=== PATIENT | male | born 1955 ===

== ENCOUNTER 2019-12-30 12:36 | Outpatient (REF) | payer OTHER, SELFPAY ==
[2019-12-30 21:09] LABS: Anion Gap 8.9 mmol/L (3-11); BUN 21 mg/dL (7-18); CO2 25.1 mmol/L (21.0-32.0); Calcium 9.6 mg/dL (8.5-10.1); Calculated LDL 166 mg/dL (<100); Chloride 105 mmol/L (98-107); Cholesterol 228 mg/dL (<200); Glucose 110 mg/dL (74-106); HDL Cholesterol 49 mg/dL (40-60); Potassium 4.5 mmol/L (3.5-5.1); Sodium 139 mmol/L (136-145); Triglyceride 66 mg/dL (<150)
== END 2019-12-30 12:56 ==
LOC: NCHCN 12:36
PROVIDERS: PCP Internal Medicine; Visit Provider Internal Medicine
DX: Z00.00 Encounter for general adult medical examination without abnormal findings (principal); M17.12 Unilateral primary osteoarthritis, left knee; E66.3 Overweight; Z12.5 Encounter for screening for malignant neoplasm of prostate; Z13.220 Encounter for screening for lipoid disorders
CPT/HCPCS: 80048; 80061; 84153

== ENCOUNTER 2020-02-22 10:11 | Outpatient (REF) | payer OTHER, SELFPAY ==
[2020-02-25 14:22] LABS: SARS-CoV-2 RNA Undetected (Undetected); SARS-CoV-2 Specimen Source Nasal
== END 2020-02-22 10:31 ==
LOC: NCHCN 10:11
PROVIDERS: PCP Internal Medicine; Visit Provider Internal Medicine
DX: R50.9 Fever, unspecified (principal); R05 Cough
CPT/HCPCS: U0003

== ENCOUNTER 2020-11-17 11:27 | Outpatient (REF) | payer OTHER, SELFPAY ==
[2020-11-19 12:29] LABS: COVID-19 RT-PCR UVMMC Result Negative (Negative)
== END 2020-11-17 11:28 | disposition home or self-care (01) ==
LOC: NCHCN 11:27
PROVIDERS: PCP Internal Medicine; Visit Provider Internal Medicine
DX: Z20.822 Contact with and (suspected) exposure to COVID-19 (principal)
CPT/HCPCS: U0003

== ENCOUNTER 2021-11-08 12:20 | Outpatient (REF) | payer MEDICARE, OTHER, SELFPAY ==
[2021-11-08 21:12] LABS: HCT 38.5 % (40.0-50.0); HGB 12.8 g/dL (13.5-17.5); MCH 28.7 pg (27.0-33.0); MCHC 33.2 % (32.0-36.0); MCV 86 fL (80-95); MPV 11.5 fL (8.0-11.0); Platelet Count 225 10^3/uL (130-400); RBC 4.46 10^6/uL (4.36-5.78); RDW 12.7 % (11.8-14.1); WBC 4.65 10^3/uL (4.4-10.8)
[2021-11-08 21:39] LABS: ALT 40 U/L (16-63); AST 26 U/L (15-37); Albumin 4.1 g/dL (3.4-5.0); Alkaline Phosphatase 69 U/L (46-116); Anion Gap 6.2 mmol/L (3-11); BUN 30 mg/dL (7-18); Bilirubin, Total 0.6 mg/dL (0.2-1.0); CO2 26.8 mmol/L (21.0-32.0); CREATININE 1.2 mg/dL (0.70-1.30); Calcium 9.4 mg/dL (8.5-10.1); Chloride 103 mmol/L (98-107); Glucose 99 mg/dL (74-106); Potassium 4.5 mmol/L (3.5-5.1); Sodium 136 mmol/L (136-145); TSH 1.73 uIU/mL (0.36-3.74); Total Protein 7.5 g/dL (6.4-8.2)
== END 2021-11-08 12:21 | disposition home or self-care (01) ==
LOC: NCHCN 12:20
PROVIDERS: PCP Internal Medicine; Visit Provider Internal Medicine
DX: R53.83 Other fatigue (principal); I34.0 Nonrheumatic mitral (valve) insufficiency
CPT/HCPCS: 80053; 85027; 84443

== ENCOUNTER 2022-01-17 21:31 | Outpatient (REF) | payer MEDICARE, OTHER, SELFPAY ==
[2022-01-17 21:10] LABS: HCT 45.6 % (40.0-50.0); MCH 28.6 pg (27.0-33.0); MCHC 32.9 % (32.0-36.0); MCV 87 fL (80-95); MPV 11.7 fL (8.0-11.0); Platelet Count 237 10^3/uL (130-400); RBC 5.25 10^6/uL (4.36-5.78); RDW 12.4 % (11.8-14.1); RDW-SD 39.7 fL; WBC 4.65 10^3/uL (4.4-10.8)
[2022-01-17 21:25] LABS: Iron 54 ug/dL (65-175); Total Iron Binding Capacity 341 ug/dL (250-450); Transferrin Sat 16 % (20-55)
[2022-01-17 21:37] LABS: Ferritin 95 ng/mL (26-388)
== END 2022-01-17 21:32 | disposition home or self-care (01) ==
LOC: NCHCN 21:31
PROVIDERS: PCP Internal Medicine; Visit Provider Internal Medicine
DX: D64.9 Anemia, unspecified (principal)
CPT/HCPCS: 85027; 82728; 83540; 83550

== ENCOUNTER 2022-03-09 22:31 | Outpatient (REF) | payer MEDICARE, OTHER, SELFPAY ==
[2022-03-09 21:37] LABS: Anion Gap 10.8 mmol/L (3-11); BUN 20 mg/dL (7-18); CO2 26.2 mmol/L (21.0-32.0); CREATININE 1.3 mg/dL (0.70-1.30); Calcium 9.2 mg/dL (8.5-10.1); Chloride 102 mmol/L (98-107); Estimated GFR 60.96 (mL/min/1.73m2); Glucose 108 mg/dL (74-106); Magnesium 1.8 mg/dL (1.8-2.4); Potassium 3.6 mmol/L (3.5-5.1); Sodium 139 mmol/L (136-145)
[2022-03-09 22:17] LABS: NT-proBNP 3453 pg/mL (<300)
== END 2022-03-09 22:32 | disposition home or self-care (01) ==
LOC: NCHCN 22:31
PROVIDERS: PCP Internal Medicine; Visit Provider Internal Medicine
DX: I50.9 Heart failure, unspecified (principal)
CPT/HCPCS: 80048; 83735; 83880

== ENCOUNTER 2022-07-06 15:02 | Outpatient (REF) | payer MEDICARE, OTHER, SELFPAY ==
[2022-07-06 19:08] LABS: Anion Gap 8.1 mmol/L (3-11); BUN 24 mg/dL (7-18); CO2 25.9 mmol/L (21.0-32.0); CREATININE 1.2 mg/dL (0.70-1.30); Calcium 8.9 mg/dL (8.5-10.1); Chloride 102 mmol/L (98-107); Glucose 119 mg/dL (74-106); Magnesium 2.2 mg/dL (1.8-2.4); Potassium 4.7 mmol/L (3.5-5.1); Sodium 136 mmol/L (136-145)
== END 2022-07-06 15:03 | disposition home or self-care (01) ==
LOC: LBN 15:02
PROVIDERS: PCP Internal Medicine; Visit Provider Internal Medicine Cardiovascular Disease
DX: I48.0 Paroxysmal atrial fibrillation (principal)
CPT/HCPCS: 80048; 83735

== ENCOUNTER 2023-10-23 19:16 | Outpatient (REF) | payer MEDICARE, OTHER, SELFPAY ==
[2023-10-23 21:29] LABS: HCT 43.2 % (40.0-50.0); HGB 14.6 g/dL (13.5-17.5); MCH 29.7 pg (27.0-33.0); MCHC 33.8 % (32.0-36.0); MCV 88 fL (80-95); Platelet Count 221 10^3/uL (130-400); RBC 4.92 10^6/uL (4.36-5.78); RDW 12.2 % (11.8-14.1); RDW-SD 39.1 fL; WBC 5.06 10^3/uL (4.4-10.8)
[2023-10-23 22:40] LABS: Anion Gap 10.9 mmol/L (3-11); BUN 22 mg/dL (7-18); CO2 25.1 mmol/L (21.0-32.0); CREATININE 1.2 mg/dL (0.70-1.30); Calcium 9.4 mg/dL (8.5-10.1); Calculated LDL 165 mg/dL (<100); Chloride 104 mmol/L (98-107); Cholesterol 243 mg/dL (<200); Estimated GFR 66.28 (mL/min/1.73m2); Glucose 78 mg/dL (74-106); HDL Cholesterol 47 mg/dL (40-60); Potassium 4.5 mmol/L (3.5-5.1); Sodium 140 mmol/L (136-145); Triglyceride 155 mg/dL (<150)
[2023-10-24 02:12] LABS: Uric Acid 7.8 mg/dL (3.5-7.2)
== END 2023-10-23 19:17 | disposition home or self-care (01) ==
LOC: NCHCN 19:16
PROVIDERS: PCP Internal Medicine; Visit Provider Internal Medicine
DX: I10 Essential (primary) hypertension (principal); M10.9 Gout, unspecified
CPT/HCPCS: 80048; 80061; 85027; 84550